=== PATIENT | female | born 1980 | race Caucasian/White ===

== ENCOUNTER 2021-04-13 21:03 | Emergency (ER) | payer BC ==
[2021-04-13] MEDS: GI Cocktail Oral Solution 30 ML PO ONE ×2 (21:09→21:59)
[2021-04-13] MEDS ORDERED: Sodium Chloride 0.9% 10 ML Syringe FLUSH PRN (21:12)
[2021-04-13] MEDS: Glucagon,Human Recombinant 1 MG Vial IV ONE (21:18)
[2021-04-13] MEDS: Ondansetron 4 MG/2 ML SDV IV ONE (21:20)
[2021-04-13] MEDS: LORazepam 2 MG/ML SDV IVPUSH ONE (21:21)
--- NOTE | 2021-04-13 21:23 | EDM.PDOC ---
ED HPI GENERAL MEDICAL PROBLEM - General Stated Complaint: Something stuck in her throat Time Seen by Provider: 04/13/21 21:03 Source of Information: Reports: Patient History Limitations: Reports: No Limitations - History of Present Illness INITIAL COMMENTS - FREE TEXT/NARRATIVE: Patient comes emergency department today from home with concerns of something stuck in her throat. Just prior to arrival the patient took which she explains as 3 tablets of liquid Advil that were stuck in a glob all at one time. Shortly thereafter it felt like it was stuck in her throat. She never had any difficulty breathing. They did attempt a Heimlich maneuver although she was able to talk and speak and was not short of breath. She vomited in the car according to her daughter multiple times. She still had the sensation of something stuck in her throat. She has a little bit of shortness of breath upon arrival but no pain in her chest. She is not been salivating. She has been able to drink water. She can speak in full sentences. Throat Pain Score (Numeric/FACES): 4 - Related Data Allergies Allergy/AdvReac Type Severity Reaction Status Date / Time No Known Allergies Allergy Verified 04/13/21 21:33 Home Meds: Home Meds Albuterol Sulfate [Albuterol Sulfate Hfa] 2 puff INH ASDIRECTED PRN 04/13/21 [History] ED ROS ENT - Review of Systems Review Of Systems: Comprehensive ROS is negative, except as noted in HPI. ED EXAM, ENT - Physical Exam Exam: See Below Exam Limited By: No Limitations General Appearance: Anxious (Quite anxious) Eye Exam: Bilateral Eye: EOMI Ears: Normal External Exam, Normal TMs Nose: Normal Inspection, Normal Mucousa Mouth/Throat: Normal Inspection, Normal Gums, Normal Lips, Normal Oropharynx, Normal Teeth, Other (Examination of the posterior pharynx there is no sign of foreign material. There is no hyper salivation. The uvula is midline. Gag reflex intact.) Head: Atraumatic, Normocephalic Neck: Normal Inspection, Supple, Non-Tender, Full Range of Motion, Other (There is no stridor. There is no subcutaneous emphysema. Her neck is unremarkable.) Respiratory/Chest: No Respiratory Distress, Lungs Clear, Normal Breath Sounds, No Accessory Muscle Use, Chest Non-Tender Cardiovascular: Normal Peripheral Pulses, Regular Rate, Rhythm GI/Abdominal: Normal Bowel Sounds, Soft Extremities: Normal Inspection Neurological: Alert, Oriented Psychiatric: Anxious Skin: Warm, Dry, Intact, Normal Color Course - Vital Signs Last Recorded V/S: Last Vital Signs Temp 98.2 F 04/13/21 21:10 Pulse 71 04/13/21 21:42 Resp 98 H 04/13/21 21:42 BP 144/92 H 04/13/21 21:42 Pulse Ox 98 04/13/21 21:10 - Orders/Labs/Meds Orders: Active Orders 24 hr Category Date Time Status Sodium Chloride 0.9% [Saline Flush] Med 04/13/21 21:12 Active 10 ml FLUSH ASDIRECTED PRN Peripheral IV Insertion Adult [OM.PC] Stat Oth 04/13/21 21:12 Ordered Medication Orders Sodium Chloride (Sodium Chloride 0.9% 10 Ml Syringe) 10 ml FLUSH ASDIRECTED PRN PRN Reason: Keep Vein Open Meds: Medications Generic Name Dose Route Start Last Admin Trade Name Freq PRN Reason Stop Dose Admin Sodium Chloride 10 ml 04/13/21 21:12 Sodium Chloride 0.9% 10 Ml Syringe FLUSH ASDIRECTED PRN Keep Vein Open Discontinued Medications Generic Name Dose Route Start Last Admin Trade Name Freq PRN Reason Stop Dose Admin Al Hydroxide/Mg Hydroxide 30 ml 04/13/21 21:05 04/13/21 21:09 Gi Cocktail Oral Solution 30 Ml PO 04/13/21 21:06 30 ml ONETIME ONE Administration Al Hydroxide/Mg Hydroxide 30 ml 04/13/21 21:55 Gi Cocktail Oral Solution 30 Ml PO 04/13/21 21:56 ONETIME ONE Glucagon 1 mg 04/13/21 21:12 04/13/21 21:18 Glucagon,Human Recombinant 1 Mg Vial IV 04/13/21 21:13 1 mg ONETIME ONE Administration Lorazepam 1 mg 04/13/21 21:14 04/13/21 21:21 Lorazepam 2 Mg/Ml Sdv IVPUSH 04/13/21 21:15 1 mg STAT ONE Administration Ondansetron HCl 4 mg 04/13/21 21:14 04/13/21 21:20 Ondansetron 4 Mg/2 Ml Sdv IV 04/13/21 21:15 4 mg ONETIME ONE Administration - Re-Assessments/Exams Free Text/Narrative Re-Assessment/Exam: Upon arrival this patient is able to speak in full sentences and clearly does not have any airway obstruction but she still has a sensation of a foreign body in her throat. She is quite anxious upon arrival. She is able to drink water upon arrival without vomiting. She still is quite insistent that there is something stuck in her throat. This is most likely due to sensation following the medication being stuck there but has passed as she does not have any hypersalivation vomiting and she is able to drink fluids without vomiting. We did try a GI cocktail which she was unable to tolerate although she could drink water just fine. IV was est ablished. She was given lorazepam to help with her anxiety Zofran for prophylactic nausea and glucagon for smooth muscle relaxation. The patient had quite a bit of improvement of the discomfort in her throat and coughing. She was able to drink almost an entire full glass of water. I also had her drink a Coca-Cola in an attempt if the pills were still there to help acidify the area and dissolve the tablets faster. She is clearly in no respiratory distress. She is able to drink water freely. I think most of her symptoms are primarily due to irritation of the foreign body that has moved and most likely gone to the stomach. She is not vomiting. She still has a little bit of irritation but she is much improved. This sensation should take about 24 hours or so for it to resolve after the irritation. If she is have any difficulty breathing or swallowing she needs to recheck immediately. Discharge instructions as below are explained to the patient she is comfortable this plan her questions were answered. Departure - Departure Time of Disposition: 21:57 Disposition: Home, Self-Care 01 Clinical Impression: Sensation of foreign body in esophagus - Discharge Information Additional Instructions: Drink plenty of fluids over the next few days. Cool soft food to help sooth your throat. Maalox or Mylanta for discomfort or heartburn. Return to the ED if new or worsening symptoms. Follow up with PCP as needed. Sepsis Event Note (ED) - Focused Exam Vital Signs: Vital Signs Temp Pulse Resp BP Pulse Ox 04/13/21 21:42 71 98 H 144/92 H 04/13/21 21:27 154/107 H 04/13/21 21:10 98.2 F 83 18 157/110 H 98 - My Orders Last 24 Hours: My Active Orders 04/13/21 21:12 Sodium Chloride 0.9% [Saline Flush] 10 ml FLUSH ASDIRECTED PRN Peripheral IV Insertion Adult [OM.PC] Stat - Assessment/Plan Last 24 Hours: My Active Orders 04/13/21 21:12 Sodium Chloride 0.9% [Saline Flush] 10 ml FLUSH ASDIRECTED PRN Peripheral IV Insertion Adult [OM.PC] Stat
== END 2021-04-13 22:16 | disposition home or self-care (01) ==
LOC: VM.ED 21:03
DX: T18.198A Other foreign object in esophagus causing other injury, initial encounter (principal)
CPT/HCPCS: 96374; 96375; 99283; 99283-25; A9270-GY; J1610; J2060; J2405